=== PATIENT | female | born 1970 | race Caucasian/White ===

== ENCOUNTER → 2017-10-10 | Outpatient (CLI) | payer BC, OTHER ==
[~2017-10-10] MED LIST: ATEN25TA PO; GABA300C10 PO; TAMO20TA PO
== END ==
LOC: STAR 11:41
PROVIDERS: ATTEND Specialist
DX: Z02.9 Encounter for administrative examinations, unspecified (principal)

== ENCOUNTER 2017-10-18 05:41 | Day surgery (SDC) | payer BC, OTHER ==
[~2017-10-18] VITALS: Ht 170.2 cm; Wt 113.6 kg
[2017-10-18] MEDS ORDERED: FENTANYL PF 250 MCG/5ML ONE (06:42)
[2017-10-18] MEDS ORDERED: MIDAZOLAM 1 MG/ML, 2ML ONE (06:42)
[2017-10-18] MEDS ORDERED: LACTATED RINGERS 1,000 ML IV SCH (06:53)
[2017-10-18 06:56] VITALS: BP 147/96
[2017-10-18] MEDS ORDERED: INDIGO CARMINE 0.8%, 5ML ONE (06:58)
[2017-10-18] MEDS ORDERED: BUPIVACAINE 0.25% ONE (06:58)
[2017-10-18] MEDS ORDERED: ACETAMINOPHEN 500 MG TABLET PO ONE (07:00)
[2017-10-18] MEDS ORDERED: ONDANSETRON ODT 8 MG PO ONE (07:00)
[2017-10-18] MEDS ORDERED: OxyconTIN ER 20 MG TAB.ER PO ONE (07:00)
[2017-10-18] MEDS ORDERED: SCOPOLAMINE PATCH, 1.5MG PATCH.TD72 TD ONE (07:00)
[2017-10-18] MEDS ORDERED: GABAPENTIN 300 MG CAPSULE PO ONE (07:00)
[2017-10-18] MEDS ORDERED: PROPOFOL 10 MG/ML, 20ML ONE (07:08)
[2017-10-18] MEDS ORDERED: ROCURONIUM 10MG/ML,5ML ONE ×2 (07:09→08:54)
[2017-10-18] MEDS ORDERED: NEOSTIGMINE 1 MG/ML, 10ML ONE (07:09)
[2017-10-18] MEDS ORDERED: GLYCOPYRROLATE 0.4 MG/2 ML, 2ML ONE (07:09)
[2017-10-18] MEDS ORDERED: CEFOTETAN PMX 2GM/50ML 50 ML ONE (07:10)
[2017-10-18] MEDS ORDERED: DEXAMETHASONE 4 MG/ML, 1ML ONE ×2 (07:14)
[2017-10-18] MEDS ORDERED: PROMETHAZINE 25 MG/ML, 1ML IV PRN (07:30)
[2017-10-18] MEDS ORDERED: ONDANSETRON 2MG/ML, 2ML IV PRN (07:30)
[2017-10-18] MEDS ORDERED: MEPERIDINE/PF 25MG/0.5ML IVPush PRN (07:30)
[2017-10-18] MEDS ORDERED: METOPROLOL 1 MG/ML, 5ML IV PRN (07:30)
[2017-10-18] MEDS ORDERED: MORPHINE SULFATE 4 MG/ML, 1ML IVPush PRN (07:30)
[2017-10-18] MEDS ORDERED: FENTANYL PF 100 MCG/2ML IV PRN (07:30)
[2017-10-18] MEDS ORDERED: HYDROmorphone 1 MG/ML, 1ML IV PRN (07:30)
[2017-10-18] MEDS ORDERED: PROMETHAZINE 25 MG SUPP PR PRN (07:30)
[2017-10-18] MEDS ORDERED: OXYcodone 5 MG/5 ML ORAL.SOL UDC PO PRN (07:30)
[2017-10-18] MEDS ORDERED: LABETALOL 5MG/ML, 20ML IV PRN (07:30)
[2017-10-18] MEDS ORDERED: ONDANSETRON ODT 8 MG PO PRN (07:30)
[2017-10-18] MEDS ORDERED: PROMETHAZINE 12.5 MG SUPP PR PRN (07:30)
[2017-10-18] MEDS ORDERED: hydrALAzine 20 MG/ML, 1ML IV PRN (07:30)
[2017-10-18] MEDS ORDERED: FENTANYL PF 100 MCG/2ML ONE (09:23)
[2017-10-18 09:27] LABS: HCG UR SG 1.024 (1.003-1.030)
[2017-10-18] MEDS ORDERED: KETOROLAC 30 MG/1 ML ONE (10:01)
== END 2017-10-18 14:51 ==
LOC: OUT 05:41
PROVIDERS: ATTEND Specialist
DX: D25.9 Leiomyoma of uterus, unspecified (principal); N83.201 Unspecified ovarian cyst, right side; D64.9 Anemia, unspecified; G43.909 Migraine, unspecified, not intractable, without status migrainosus; E66.9 Obesity, unspecified; I10 Essential (primary) hypertension; Z87.39 Personal history of other diseases of the musculoskeletal system and connective tissue; J45.909 Unspecified asthma, uncomplicated; Z85.3 Personal history of malignant neoplasm of breast; Z90.49 Acquired absence of other specified parts of digestive tract; Z98.890 Other specified postprocedural states
CPT/HCPCS: 58571; 81025; 88112; 88305; 88307; J1100; J1885; J2250; J2704; J2710; J3010; J3490; J7120; Q0162; S0074; S2900